=== PATIENT | male | born 1965 | race African-American/Black ===

== ENCOUNTER → 2018-01-08 | Outpatient (CLI) | payer MEDICARE, MEDICAID ==
--- NOTE | 2018-01-08 14:02 | XCELERA REPORT ---
[address] [address] Lower Extremity Venous Evaluation Name: ROSALIND AWAN Age: 52 yrs Gender: Male : 1965 Patient Status: Outpatient Patient Location: Study Date: 01/08/2018 08:59 AM Procedure: A bilateral duplex scan of the lower extremity veins was performed. The evaluation included responses to compression and other maneuvers with patient in the supine and standing positions to assess venous insufficiency. Reason For Study: HX THROMBUS Ordering Physician: ABNER FIGUEREDO Performed By: Jame Sorenson Right Sided Venous Evaluation Common Femoral vein reflux: none. No other deep vein abnormality. Sapheno Femoral junction: no reflux. Femoral vein reflux: no reflux. Greater Saphenous vein, Proximal thigh: reflux: no reflux. Greater Saphenous vein, Distal thigh: reflux: no reflux. Greater Saphenous vein, Proximal below knee: reflux: no reflux. No significant Perforators identified. Left Sided Venous Evaluation Common Femoral vein reflux: none. No other deep vein abnormality. Sapheno Femoral junction: no reflux. Femoral vein reflux: no reflux. Greater Saphenous vein, Proximal thigh: reflux: no reflux. Greater Saphenous vein, Distal thigh: reflux: no reflux. Greater Saphenous vein, Proximal below knee: reflux: no reflux. No significant Perforators identified. Interpretation Summary No duplex evidence of DVT or obstruction in the bilateral lower extremities. No superficial or deep reflux noted. : ABNER FIGUEREDO > Abner Figueredo
--- NOTE | 2018-01-08 14:07 | XCELERA REPORT ---
[address] [address] Lower Extremity Arterial Evaluation Name: ROSALIND AWAN Age: 52 yrs Gender: Male : 1965 Patient Status: Outpatient Patient Location: Study Date: 01/08/2018 08:17 AM Procedure: A color flow and duplex scan of the lower extremity arteries was performed bilaterally with velocity and waveform anaylsis. Ankle brachial indicies performed. Reason For Study: PVD Ordering Physician: ABNER FIGUEREDO Performed By: Jame Sorenson Measurements and Calculations Right Left PROFESSIONAL FIGHTER PSV 79.6 0.20 cm/sec Prox PFA PSV -44.3 -18.3 cm/sec Prox SFA PSV 66.3 25.9 cm/sec Mid SFA PSV -50.9 -15.9 cm/sec Dist SFA PSV -38.4 -31.4 cm/sec Prox Pop A PSV 38.8 30.3 cm/sec Dist OSCAR PSV 13.8 18.5 cm/sec Dist [employer]PER[employer]OR PSV 34.6 14.7 cm/sec Artur Pedis PSV 11.4 15.7 cm/sec Right Side Arterial Evaluation Abnormal, low velocities and monophasic waveforms noted from the Common Femoral artery to the infrageniculate vessels. Significantly decreased amplitude distally. 50-99 % stenosis at the Aorto Iliac inflow. Possible sedquential changes. Ankle Brachial index is 0.53. Left Side Arterial Evaluation Abnormal, low velocities and monophasic waveforms noted from the Femoral artery to the infrageniculate vessels. Significantly decreased amplitude throughout. Occluded , reconstituted Common Femoral artery. 50-99 % stenosis at the Aorto Iliac inflow. sequential changes. Ankle Brachial index is 0.5. Interpretation Summary Severe hemodynamically significant lesions in the bilateral lower extremities, on duplex imaging, at rest. Sever PAD, consistent with rest pain. : ABNER FIGUEREDO > Abner Figueredo
== END ==
LOC: SP 07:55 → EDSEX 08:00
PROVIDERS: ATTEND Surgery
DX: I73.9 Peripheral vascular disease, unspecified (principal); Z86.718 Personal history of other venous thrombosis and embolism
CPT/HCPCS: 93922; 93925; 93970